=== PATIENT | female | born 1965 | race Caucasian/White ===

== ENCOUNTER → 2017-08-17 15:41 | Outpatient (CLI) | payer OTHER, SELFPAY ==
--- NOTE | 2017-08-17 15:45 | MM_ITS ---
MM Dig screening mamm BI w/CAD CAD Screening ORDERING PHYSICIAN : Ezekiel Cormier MD PATIENT AGE: 51 years GENDER: Female COMPARISON: Previous mammograms: July 2016, June 2015, December 2012 INDICATION: Routine screening. No hormones. No new complaints. Noncontributory family history. TECHNIQUE: Standard CC and MLO images were obtained. Additional axillary cc includedR2 CAD reviewed. FINDINGS: Generalized fatty replacement with lower density breast overall bilaterally. No dominant mass nor suspicious calcifications. No significant change since prior studies. Bilateral follow-up in one year be adequate. CAD computer review highlights no areas of concern either . ... IMPRESSION:... Stable bilateral mammogram. Lower density breast with generalized replacement no significant change. Follow-up in one year BI-RADS Category: 1 Negative RECOMMENDED FOLLOW-UP: 1YR - 1 YEAR FOLLOW-UP (A letter has been sent to the patient regarding results of the study.) A
== END ==
PROVIDERS: Visit Provider Nurse Practitioner Obstetrics & Gynecology
DX: Z12.31 Encounter for screening mammogram for malignant neoplasm of breast (principal)
CPT/HCPCS: 77067

== ENCOUNTER → 2020-07-16 10:11 | Outpatient (CLI) | payer BC, SELFPAY ==
--- NOTE | 2020-07-16 10:12 | MM_ITS ---
PROCEDURE: MM DIG SCREENING MAMM BI W/CAD Digital Breast Tomosynthesis Included CLINICAL INDICATION: screening xmg There is no personal or family history of breast cancer. The patient has had significant weight loss since the previous exam. COMPARISON: MG DMSB DIG MAMM-SCREEN AMY from 07/18/2015 MG DMSB DIG MAMM-SCREEN AMY W/CAD from 08/15/2016 MG SCBI MM Dig screening mamm BI w/CAD from 08/17/2017 TECHNIQUE: Standard CC and MLO images and 3D Tomosynthesis was obtained. R2 CAD reviewed. FINDINGS: Scattered diffuse fibroglandular densities are seen in both breasts. There is a benign-appearing calcification right breast. There are no CAD markings. There is no new or suspicious lesion in either breast and no suspicious microcalcifications. IMPRESSION: Fibrofatty parenchyma with no suspicious lesions seen BI-RAD Category: 2 Benign Finding(s) FOLLOW-UP: 1YR 1 Year Follow-up (A letter has been sent to the patient regarding results of the study.) Dictated by: Dr. Serjio Sagastume MD 07/22/2020 10:26 Dr. Serjio Sagastume MD in [place] 07/22/2020 10:26
== END ==
PROVIDERS: PCP Nurse Practitioner Obstetrics & Gynecology; Visit Provider Nurse Practitioner Obstetrics & Gynecology
DX: Z12.31 Encounter for screening mammogram for malignant neoplasm of breast (principal)
CPT/HCPCS: 77063; 77067

== ENCOUNTER → 2021-08-16 08:14 | Outpatient (CLI) | payer OTHER, SELFPAY ==
--- NOTE | 2021-08-16 08:15 | MM_ITS ---
PROCEDURE INFORMATION: Exam: MG Bilateral Screening 3D Mammography Exam date and time: 08/16/2021 8:16 AM Age: 55 years old Clinical indication: Screening. No family history of breast cancer. TECHNIQUE: Imaging protocol: Bilateral Screening tomosynthesis and 2D mammography including computer-aided detection (CAD) when performed. COMPARISON: 1. MG MM DIG SCREENING MAMM BI W/CAD 07/16/2020 10:17 AM 2. MG SCBI MM Dig screening mamm BI w/CAD 08/17/2017 3:55 PM 3. MG DMSB DIG MAMM-SCREEN AMY W/CAD 08/15/2016 9:05 AM 4. MG DMSB DIG MAMM-SCREEN AMY 07/18/2015 1:50 PM FINDINGS: MAMMOGRAPHY: Breast composition: There are scattered areas of fibroglandular density. Mass: None. Architectural distortion: None. Calcifications: No suspicious calcifications. Asymmetric density: None. Skin thickening: None. Axillary adenopathy: None. IMPRESSION: No mammographic evidence of malignancy. Annual screening is recommended unless otherwise clinically indicated. ASSESSMENT: BI-RADS Category 1: Negative
== END ==
PROVIDERS: Visit Provider Nurse Practitioner Obstetrics & Gynecology
DX: Z12.31 Encounter for screening mammogram for malignant neoplasm of breast (principal)
CPT/HCPCS: 77063; 77067

== ENCOUNTER 2023-12-11 14:47 | Outpatient (CLI) | payer BC, SELFPAY ==
--- NOTE | 2023-12-11 14:48 | MM_ITS ---
PROCEDURE INFORMATION: Exam: MG Bilateral Screening 3D Mammography Exam date and time: 12/11/2023 2:49 PM Age: 58 years old Clinical indication: Screening examination TECHNIQUE: Imaging protocol: Bilateral Screening tomosynthesis and 2D mammography including computer-aided detection (CAD) when performed. COMPARISON: 1. MG MM DIG SCREENING MAMM BI W/CAD 08/16/2021 8:16 AM 2. MG MM DIG SCREENING MAMM BI W/CAD 07/16/2020 10:17 AM FINDINGS: MAMMOGRAPHY: Breast composition: The breasts are almost entirely fatty. Mass: None. Architectural distortion: None. Calcifications: No suspicious calcifications. Asymmetric density: None. Skin thickening: None. Axillary adenopathy: None. IMPRESSION: No mammographic evidence of malignancy. Annual screening is recommended unless otherwise clinically indicated. ASSESSMENT: BI-RADS Category 1: Negative
== END 2023-12-11 23:59 | disposition home or self-care (01) ==
LOC: RAD 14:48
PROVIDERS: PCP Social Worker; Visit Provider Nurse Practitioner Obstetrics & Gynecology
DX: Z12.31 Encounter for screening mammogram for malignant neoplasm of breast (principal)
CPT/HCPCS: 77063; 77067

== ENCOUNTER 2024-01-09 09:44 | Outpatient (CLI) | payer BC, SELFPAY ==
[2024-01-09 10:12] LABS: Basophils % 0.7 % (0.1-2.0); Eosinophils # 0.2 K/mm3 (0.0-0.4); Hematocrit 49.1 % (37.0-47.0); Hemoglobin 15.4 g/dL (12.2-16.2); Lymphocytes # 2.1 K/mm3 (0.7-4.5); Mean Corpuscular HGB Conc 31.5 g/dL (31.8-35.4); Mean Corpuscular Hemoglobin 31.6 pg (27.0-31.2); Mean Corpuscular Volume 100.6 fl (81-99); Mean Platelet Volume 6.9 fl (7.4-10.4); Monocytes # 0.3 K/mm3 (0.1-1.0); Monocytes % 5.8 % (1.7-9.3); Neutrophils # 3.3 K/mm3 (1.8-7.8); Neutrophils % 55.5 % (37.0-80.0); Platelet Count 239 K/mm3 (142-424); Red Blood Count 4.88 M/mm3 (4.20-5.40); Red Cell Distribution Width 13.3 % (11.5-17.5); White Blood Count 5.9 K/mm3 (4.8-10.8)
[2024-01-09 10:37] LABS: Alanine Aminotransferase 24 U/L (12-78); Albumin Level 4.1 g/dl (3.5-5.0); Albumin/Globulin Ratio 1.5 (1.1-1.8); Alkaline Phosphatase 61 U/L (38-126); Aspartate Amino Transferase 24 U/L (14-36); Bilirubin,Total 0.7 mg/dl (0.2-1.3); Blood Urea Nitrogen 10 mg/dl (7-17); Calcium 9.5 mg/dl (8.4-10.2); Carbon Dioxide 28 mmol/L (22.0-30.0); Chloride 111 mmol/L (98-107); Chol/HDL Ratio 5.1 (1-3.5); Cholesterol 251 mg/dl (140-200); Estimated Glomerular Filt Rate 86 ml/min (>60); GFR (African American) 104 ML/MIN (>60); Globulin 2.7 g/dL (1.3-3.2); Glucose 132 mg/dl (74-100); HDL Cholesterol 49 mg/dl (40-60); Sodium 143 mmol/L (136-145); Total Protein,Serum 6.8 g/dl (6.3-8.2); Triglycerides 76 mg/dl (30-150); VLDL Cholesterol 15 mg/dL (0-40)
[2024-01-09 10:48] LABS: Direct LDL Cholesterol 165.28 mg/dL (100-129)
[2024-01-11 16:12] LABS: Hemoglobin A1C 9.9 % (4.0-6.0)
[2024-01-12 08:27] LABS: HSV-1 DNA Negative (Negative); HSV-2 DNA Negative (Negative)
== END 2024-01-09 23:59 | disposition home or self-care (01) ==
LOC: LAB 09:45
PROVIDERS: PCP Social Worker; Visit Provider Nurse Practitioner Obstetrics & Gynecology
DX: Z01.419 Encounter for gynecological examination (general) (routine) without abnormal findings (principal); R73.09 Other abnormal glucose
CPT/HCPCS: 36415; 80053; 80061; 83036; 85025; 87529

== ENCOUNTER 2024-12-27 07:38 | Outpatient (CLI) | payer BC, SELFPAY ==
--- OUTSIDE RECORDS SUMMARY | 2024-12-08 08:00 | XMS_ITS | Encounter Summary ---
Author Organization Healthcare Address [address] [place] [address] Care Team Providers Care Recruiting Consultant Name Role Phone Irvin Duong MD Primary Care Provider Unavail able Reason for Visit * Reason Comments Eye Exam Encounter Details Date Type Department Care Team (Late st Contact Info) Description 12/08/2024 8:00 AM EDT Clinical Support [facility] [address] [place] [address] Radha Carr MD [address] [address] Eye Exam Social History Tobacco [...] reach the clinic on the phone. Call [phone] and ask for the home appliances mechanic insulation nozzleman if it is after hours or a [...] reach the clinic on the phone. Call [phone] and ask for the home appliances mechanic insulation nozzleman if it is after hours or a [...] Description 03/13/2025 8:00 AM EST Office Visit [facility] [address] [place] [address] Marcell Rashid MD [address] [facility] [address] [place] [address] documented as of this encounter [...] documented as of this encounter Care Teams Recruiting Consultant Relationship Specialty Start Date End Date Irvin Duong MD [address] [facility] [address] [place] [address] PCP - General 01/27/22 documented as of this encounter
--- OUTSIDE RECORDS SUMMARY | 2024-12-08 08:50 | XMS_ITS | Encounter Summary ---
Author Organization Healthcare Address [address] [place] [address] Care Team Providers Care Recreation Attendant Name Role Phone Irvin Duong MD Primary Care Provider Unavail able Encounter Details Date Type Department Care Team (Late st Contact Info) Description 12/08/2024 8:50 AM EDT Ancillary Procedure [facility] [address] [place] [address] Social History Tobacco Use Types Packs/Day Years [...] on file documented as of this encounter Plan of Treatment Upcoming Encounters Date Type Department Care Team (Late st Contact Info) Description 03/13/2025 8:00 AM EST Office Visit [facility] [address] [place] [address] Marcell Rashid MD [address] [address] documented as of this encounter Procedures [...] Result documented in this encounter Visit Diagnoses Not on filedocumented in this encounter Additional Health Concerns Assessment Noted Time A fall risk assessment has been complete d for the patient 12/28/2023 8:29 AM EDT A Body Mass Index follow-up plan has been documented for the patient 12/08/2024 9:31 AM EDT documented as of this encounter Care Teams Recreation Attendant Relationship Specialty Start Date End Date Irvin Duong MD [address] [facility] [address] [place] [address] PCP - General 01/27/22 documented as of this encounter
--- OUTSIDE RECORDS SUMMARY | 2024-12-27 07:41 | XMS_ITS | Encounter Summary ---
Author Organization Healthcare Address [address] [place] [address] Care Team Providers Care Agricultural Produce Commission Agent Name Role Phone Irvin Duong MD Primary Care Provider Unavail able Reason for Visit * Reason Onset Date Comments HCN - Patient Message 12/05/2024 Encounter Details Date Type Department Care Team (Late st Contact Info) Description 12/05/2024 Telephone [facility] [address] [place] [address] Marcell Rashid MD [address] [address] HCN - Patient Message Social History Tobacco Use Types Packs/Day Years [...] as of this encounter Miscellaneous Notes * Telephone Encounter - Lesli Davis - 12/05/2024 1:54 PM EDT Status Update Call #1 1st call regarding the status of the initial request. Best contact number: [phone] (home) Optimal time of day to reach caller: ANYTIME Additional comments/information from caller: None Note: Please do not reply to this message. Follow-up communication and further actions as a result of this message need to be communicated with the patient directly, if the patient is not active onMyChart. If the patient is active on MyChart, they will receive notification of the communication/outcome via MyChart. * Telephone Encounter - Brayden Moraes - 12/05/2024 10:33 AM EDT Patient Phone Message Reason for Call: Pt is requesting a call back to discuss the research visit. Best contact number and optimal time of day to reach caller: [phone] Note: Please do not reply to this message. Follow-up communication and further actions as a result of this message need to be communicated with the patient directly, if the patient is not active onMyChart. If the patient is active on MyChart, they will receive notification of the communication/outcome via MyChart. documented in this encounter Plan of Treatment Upcoming Encounters Date Type Department Care Team (Late st Contact Info) Description 03/13/2025 8:00 AM EST Office Visit [facility] [address] [place] [address] Marcell Rashid MD [address] [address] documented as of this encounter Visit Diagnoses Not on filedocumented in this encounter Additional Health Concerns Assessment Noted Time A fall risk assessment has been complete d for the patient 12/28/2023 8:29 AM EDT A Body Mass Index follow-up plan has been documented for the patient 06/01/2024 9:36 AM EST documented as of this encounter Care Teams Agricultural Produce Commission Agent Relationship Specialty Start Date End Date Irvin Duong MD [address] [facility] [address] [place] [address] PCP - General 01/27/22 documented as of this encounter
--- OUTSIDE RECORDS SUMMARY | 2024-12-27 07:41 | XMS_ITS | Continuity of Care Document ---
Author Organization [facility] Address [address] [place] [address] Care Team Providers Care Research Microbiologist Name Role Phone Irvin Duong MD Primary Care Provider Unavail able Encounters Date Type Department Care Team Description 12/08/2024 8:50 AM EDT Ancillary Procedure [facility] [address] [place] [address] 12/08/2024 Travel 12/08/2024 8:00 AM EDT Clinical Support [facility] [address] [place] [address] Radha Carr MD Eye Exam 12/05/2024 Telephone [facility] [address] [place] [address] Marcell Rashid MD HCN - Patient Message 06/30/2024 Travel 06/30/2024 8:30 AM EDT Clinical Support [facility] [address] [place] [address] Radha Carr MD Research 06/01/2024 Travel 06/01/2024 7:20 AM EST Ancillary Procedure [facility] [address] [place] [address] 06/01/2024 9:00 AM EST Office Visit [facility] [address] [place] [address] Marcell Rashid MD 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 2 diabetes mellitus (CMS/HCC) (Primary Dx) 05/25/2024 Travel 05/17/2024 Telephone [facility] [address] [place] [address] Marcell Rashid MD HCN - Patient Message 03/14/2024 Telephone [facility] [address], [address] [place] [address] Rosa Stokes APRN 03/13/2024 2:21 PM EST - 03/13/2024 11:59 PM EST Hospital Encounter [facility] X-Ray [address], [address] [place] [address] Rib pain on left side Discharge Disposition: Home or Self Care 03/13/2024 Travel 03/13/2024 2:20 PM EST Office Visit [facility] [address], [address] [place] [address] Rosa Stokse, BIANCA Rash and nonspecific skin eruption (Primary Dx); Rib pain on left side 12/28/2023 8:30 AM EDT Ancillary Procedure [facility] [address] [place] [address] 12/28/2023 Travel 12/28/2023 8:30 AM EDT Office Visit [facility] [address] [place] [address] Marcell Rashid MD 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 2 diabetes mellitus (CMS/HCC) (Primary Dx) 09/07/2023 Travel 09/07/2023 7:20 AM EDT Ancillary Procedure [facility] [address] [place] [address] 09/07/2023 8:30 AM EDT Office Visit [facility] [address] [place] [address] Marcell Rashid MD 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 2 diabetes mellitus (CMS/HCC) (Primary Dx) 06/08/2023 Travel 06/08/2023 7:10 AM EST Ancillary Procedure [facility] [address] [place] [address] 06/08/2023 8:30 AM EST Office Visit [facility] [address] [place] [address] Marcell Rashid MD 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 2 diabetes mellitus (CMS/HCC) (Primary Dx) 03/02/2023 Travel 03/02/2023 7:20 AM EST Ancillary Procedure [facility] [address] [place] [address] 03/02/2023 8:30 AM EST Office Visit [facility] [address] [place] [address] Marcell Rashid MD 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 2 diabetes mellitus (CMS/HCC) (Primary Dx) 12/29/2022 Travel 12/29/2022 7:30 AM EDT Ancillary Procedure [facility] [address] [place] [address] 12/29/2022 9:30 AM EDT Procedure Visit [facility] [address] [place] [address] Marcell Rashid MD 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 2 diabetes mellitus (CMS/HCC) (Primary Dx) 11/17/2022 Travel 11/17/2022 7:40 AM EDT Ancillary Procedure [facility] [address] [place] [address] 11/17/2022 9:00 AM EDT Procedure Visit [facility] [address] [place] [address] Marcell Rashid MD 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 2 diabetes mellitus (CMS/HCC) (Primary Dx) 09/30/2022 Telephone [facility] [address] [place] [address] Frances Espinoza, OD 09/29/2022 Travel 09/29/2022 7:20 AM EDT Ancillary Procedure [facility] [address] [place] [address] 09/29/2022 9:00 AM EDT Procedure Visit [facility] [address] [place] [address] Marcell Rashid MD 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 2 diabetes mellitus (CMS/HCC) (Primary Dx) 09/04/2022 Telephone [facility] [address] [place] [address] Marcell Rashid MD HCN Clinical Concern/Question 08/11/2022 Travel 08/11/2022 7:30 AM EDT Ancillary Procedure [facility] [address] [place] [address] 08/11/2022 9:00 AM EDT Procedure Visit [facility] [address] [place] [address] Marcell Rashid MD 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 2 diabetes mellitus (CMS/HCC) (Primary Dx) 06/16/2022 Telephone [facility] [address] [place] [address] Marcell Rashid MD HCN Clinical Concern/Question 06/16/2022 Travel 06/16/2022 5:15 AM EST Ancillary Procedure [facility] [address] [place] [address] 06/16/2022 9:00 AM EST Office Visit [facility] [address] [place] [address] Marcell Rashid MD 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 2 diabetes mellitus (CMS/HCC) (Primary Dx) 05/14/2022 Telephone [facility] [address] [place] [address] Benito Fitzgerald MD 05/14/2022 Travel 05/14/2022 7:45 AM EST Ancillary Procedure [facility] [address] [place] [address] 05/14/2022 9:15 AM EST Office Visit [facility] [address] [place] [address] Marcell Rashid MD 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 2 diabetes mellitus (CMS/HCC) (Primary Dx) 03/10/2022 Travel 03/10/2022 7:55 AM EST Ancillary Procedure [facility] [address] [place] [address] 03/10/2022 9:00 AM EST Procedure Visit [facility] [address] [place] [address] Marcell Rashid MD 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 2 diabetes mellitus (CMS/HCC) (Primary Dx) 01/27/2022 Travel 01/27/2022 7:20 AM EDT Ancillary Procedure [facility] [address] [place] [address] 01/27/2022 8:30 AM EDT Office Visit [facility] [address] [place] [address] Marcell Rashid MD 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 Active meclizine (Antivert) 25 MG tablet 10/29/2024 Active Active Problems Problem Noted Date Diagnosed Date Moderate nonproliferative di abetic retinopathy of both eyes with macular edema associated with type 2 diabetes mellitus 03/10/2022 Family History Medical History Relation Name Comments Cancer Brother Hypertension Father Stroke Father Cataracts Mother Diabetes Mother Cancer Sister Relation Name Status Comments Brother Father Mother Sister Social History Smoking Status as of 12/27/2024 Tobacco Use Types Packs/Day Years Used Date Smoking Tobacco: Never Assessed Sex and Gender Information Value Date Recorded Sex Assigned at Not on file Legal Sex Female 8:43 PM EDT Gender Identity Not on file Sexual Orientation Not on file Last Filed Vital Signs Vital Sign Reading Time Taken Comments Blood Pressure 109/71 03/13/2024 1:31 PM EST Pulse 75 03/13/2024 1:31 PM EST Temperature 36.8 C (98.3 F) 03/13/2024 1:31 PM EST Respiratory Rate - - Oxygen Saturation 94% 03/13/2024 1:31 PM EST Inhaled Oxygen Concentration - - Weight 81 kg (178 lb 9.2 oz) 03/13/2024 1:31 PM EST Height 165.1 cm (5' 5 ) 03/13/2024 1:31 PM EST Body Mass Index 29.72 03/13/2024 1:31 PM EST Plan of Treatment Upcoming Encounters Date Type Department Care Team (Late st Contact Info) Description 03/13/2025 8:00 AM EST Office Visit [facility] [address] [place] [address] Marcell Rashid MD [address] [phone] Procedures Procedure Name Priority Date/Time Associated Diagnosis Comments OCT, RETINA - OU - BOTH EYES Routine 12/08/2024 9:10 AM EDT EXTRA TUBE LIGHT GREEN TOP Routine 06/30/2024 8:53 AM EDT 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 2 diabetes mellitus (CMS/HCC) EXTRA TUBES Routine 06/30/2024 8:53 AM EDT 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 2 diabetes mellitus (CMS/HCC) LIPID PROFILE, PLASMA Routine 06/30/2024 8:53 AM EDT 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 2 diabetes mellitus (CMS/HCC) URINALYSIS WITH REFLEX MICROSCOPIC Routine 06/30/2024 8:53 AM EDT 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 2 diabetes mellitus (CMS/HCC) CBC WITH AUTO DIFFERENTIAL Routine 06/30/2024 8:53 AM EDT 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 2 diabetes mellitus (CMS/HCC) COMPREHENSIVE METABOLIC PANEL, PLASMA Routine 06/30/2024 8:53 AM EDT 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 2 diabetes mellitus (CMS/HCC) OCT, RETINA - OU - BOTH EYES Routine 06/01/2024 9:21 AM EST 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 2 diabetes mellitus (CMS/HCC) XR RIBS 3 VIEWS LEFT W CHEST POSTERIORANTERIOR Routine 03/13/2024 2:46 PM EST Rib pain on left side VARICELLA-ZOSTER VIRUS ANTIBODY, IGM (SO) Routine 03/13/2024 2:28 PM EST Rash and nonspecific skin eruption OCT, RETINA - OU - BOTH EYES Routine 12/28/2023 9:11 AM EDT 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 2 diabetes mellitus (CMS/HCC) OCT, RETINA - OU - BOTH EYES Routine 09/07/2023 9:02 AM EDT 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 2 diabetes mellitus (CMS/HCC) OCT, RETINA - OU - BOTH EYES Routine 06/08/2023 8:56 AM EST 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 2 diabetes mellitus (CMS/HCC) OCT, RETINA - OU - BOTH EYES Routine 03/02/2023 8:57 AM EST 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 2 diabetes mellitus (CMS/HCC) OCT, RETINA - OU - BOTH EYES Routine 12/29/2022 10:42 AM EDT 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 2 diabetes mellitus (CMS/HCC) OCT, RETINA - OU - BOTH EYES Routine 11/17/2022 9:33 AM EDT 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 2 diabetes mellitus (CMS/HCC) INTRAVITREAL INJECTION, PHARMACOLOGIC AGENT - OS - LEFT EYE Routine 09/29/2022 10:01 AM EDT 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 2 diabetes mellitus (CMS/HCC) OCT, RETINA - OU - BOTH EYES Routine 09/29/2022 10:00 AM EDT 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 2 diabetes mellitus (CMS/HCC) OCT, RETINA - OU - BOTH EYES Routine 08/11/2022 10:59 AM EDT 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 2 diabetes mellitus (CMS/HCC) INTRAVITREAL INJECTION, PHARMACOLOGIC AGENT - OS - LEFT EYE Routine 08/11/2022 10:59 AM EDT 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 2 diabetes mellitus (CMS/HCC) INTRAVITREAL INJECTION, PHARMACOLOGIC AGENT - OS - LEFT EYE Routine 06/16/2022 9:16 AM EST 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 2 diabetes mellitus (CMS/HCC) OCT, RETINA - OU - BOTH EYES Routine 06/16/2022 9:15 AM EST 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 2 diabetes mellitus (CMS/HCC) INTRAVITREAL INJECTION, PHARMACOLOGIC AGENT - OS - LEFT EYE Routine 05/14/2022 10:49 AM EST 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 2 diabetes mellitus (CMS/HCC) OCT, RETINA - OU - BOTH EYES Routine 05/14/2022 10:49 AM EST 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 2 diabetes mellitus (CMS/HCC) OCT, RETINA - OU - BOTH EYES Routine 03/10/2022 10:29 AM EST 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 2 diabetes mellitus (CMS/HCC) DESTROY CHOROID LESION, PHOTOCOAG - OS - LEFT EYE Routine 01/27/2022 12:28 PM EDT 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 Blood Venous blood specimen / Unknown Venipuncture / Unknown 06/30/2024 8:53 AM EDT 06/30/2024 10:01 AM EDT us Radha Carr MD LAB BLOOD ORDERABLES F inal Result [facility] [address] [place] [address] * (ABNORMAL) Urinalysis with reflex microscopic (Culture NOT Included) (06/30/2024 8:53 AM EDT) Color, Urine Yellow LAB URINALYSIS - AUTOMATED METHOD 06/30/2024 10:00 AM EDT [facility] Clarity, Urine Clear LAB URINALYSIS - AUTOMATED METHOD 06/30/2024 10:00 AM EDT [facility] Spec [place], Urine >1.030(H) 1.005 - 1.030 LAB URINALYSIS - AUTOMATED METHOD 06/30/2024 10:00 AM EDT [facility] pH, Urine 5.5 5.0 - 8.0 LAB URINALYSIS - AUTOMATED METHOD 06/30/2024 10:00 AM EDT [facility] Protein, Urine Negative Negative mg/dL LAB URINALYSIS - AUTOMATED METHOD 06/30/2024 10:00 AM EDT [facility] Glucose, Urine 100(A) Negative mg/dL LAB URINALYSIS - AUTOMATED METHOD 06/30/2024 10:00 AM EDT [facility] Ketones, Urine Negative Negative mg/dL LAB URINALYSIS - AUTOMATED METHOD 06/30/2024 10:00 AM EDT [facility] Blood, Urine Negative Negative LAB URINALYSIS - AUTOMATED METHOD 06/30/2024 10:00 AM EDT [facility] Bilirubin, Urine Negative Negative LAB URINALYSIS - AUTOMATED METHOD 06/30/2024 10:00 AM EDT [facility] Urobilinogen, Urine 0.2 0.2 to 1.0 mg/dL LAB URINALYSIS - AUTOMATED METHOD 06/30/2024 10:00 AM EDT [facility] Leukocytes, Urine Negative Negative LAB URINALYSIS - AUTOMATED METHOD 06/30/2024 10:00 AM EDT [facility] Nitrite, Urine Negative Negative LAB URINALYSIS - AUTOMATED METHOD 06/30/2024 10:00 AM EDT [facility] Urine Urine specimen obtained by clean catch procedure / Unknown Non-blood Collection / Unknown 06/30/2024 8:53 AM EDT 06/30/2024 9:44 AM EDT us Radha Carr MD LAB URINE ORDERABLES F inal Result [facility] [address] [place] [address] * CBC w/ Diff (06/30/2024 8:53 AM EDT) WBC Count 7.16 3.70 - 10.30 10*3/uL LAB HEMATOLOGY METHOD 06/30/2024 9:56 AM EDT [facility] RBC Count 4.40 3.90 - 5.20 10*6/uL LAB HEMATOLOGY METHOD 06/30/2024 9:56 AM EDT [facility] HGB 13.2 11.2 - 15.7 g/dL LAB HEMATOLOGY METHOD 06/30/2024 9:56 AM EDT [facility] HCT 40.0 34.0 - 45.0 % LAB HEMATOLOGY METHOD 06/30/2024 9:56 AM EDT [facility] Platelet Count 197 155 - 369 10*3/uL LAB HEMATOLOGY METHOD 06/30/2024 9:56 AM EDT [facility] MCV 91 79 - 98 fL LAB HEMATOLOGY METHOD 06/30/2024 9:56 AM EDT [facility] MCH 30.0 26.0 - 32.0 pg LAB HEMATOLOGY METHOD 06/30/2024 9:56 AM EDT [facility] MCHC 33.0 30.7 - 35.5 g/dL LAB HEMATOLOGY METHOD 06/30/2024 9:56 AM EDT [facility] RDW 12.2 11.5 - 14.5 % LAB HEMATOLOGY METHOD 06/30/2024 9:56 AM EDT [facility] MPV 9.7 8.8 - 12.5 fL LAB HEMATOLOGY METHOD 06/30/2024 9:56 AM EDT [facility] nRBC 0.0 <=0.0 per 100 WBCs LAB HEMATOLOGY METHOD 06/30/2024 9:56 AM EDT [facility] Differential Type Automated LAB HEMATOLOGY METHOD 06/30/2024 9:56 AM EDT [facility] Neutrophils % 51 % LAB HEMATOLOGY METHOD 06/30/2024 9:56 AM EDT [facility] Lymphocytes % 36 % LAB HEMATOLOGY METHOD 06/30/2024 9:56 AM EDT [facility] Monocytes % 7 % LAB HEMATOLOGY METHOD 06/30/2024 9:56 AM EDT [facility] Eosinophils % 4 % LAB HEMATOLOGY METHOD 06/30/2024 9:56 AM EDT [facility] Basophils % 1 % LAB HEMATOLOGY METHOD 06/30/2024 9:56 AM EDT [facility] Immature Granulocytes % 1 % LAB HEMATOLOGY METHOD 06/30/2024 9:56 AM EDT [facility] Neutrophils Absolute 3.71 1.60 - 6.10 10*3/uL LAB HEMATOLOGY METHOD 06/30/2024 9:56 AM EDT [facility] Lymphocytes Absolute 2.59 1.20 - 3.90 10*3/uL LAB HEMATOLOGY METHOD 06/30/2024 9:56 AM EDT [facility] Monocytes Absolute 0.53 0.30 - 0.90 10*3/uL LAB HEMATOLOGY METHOD 06/30/2024 9:56 AM EDT [facility] Eosinophils Absolute 0.25 0.00 - 0.50 10*3/uL LAB HEMATOLOGY METHOD 06/30/2024 9:56 AM EDT [facility] Basophils Absolute 0.04 0.00 - 0.10 10*3/uL LAB HEMATOLOGY METHOD 06/30/2024 9:56 AM EDT [facility] Immature Granulocytes Absolute 0.04 0.00 - 0.06 10*3/uL LAB HEMATOLOGY METHOD 06/30/2024 9:56 AM EDT [facility] Blood Venous blood specimen / Unknown Venipuncture / Unknown 06/30/2024 8:53 AM EDT 06/30/2024 9:49 AM EDT [facility] - 06/30/2024 9:56 AM EDT Therapeutic decision making should be based on absolute values, rather than percentages. us Radha Carr MD LAB BLOOD ORDERABLES F inal Result [facility] [address] [place] [address] * (ABNORMAL) Lipid panel (06/30/2024 8:53 AM EDT) Cholesterol, Plasma 249(H) <200 mg/dL 06/30/2024 10:27 AM EDT [facility] Comment: Cholesterol Reference Range (age >17 years): Desirable <200 mg/dL Borderline 200 to 239 mg/dL Undesirable >239 mg/dL HDL 46(L) >=50 mg/dL 06/30/2024 10:27 AM EDT [facility] Comment: HDL Cholesterol Reference Ranges (age >17 years): Female, acceptable > or = 50 mg/dL Male, acceptable > or = 40 mg/dL Triglycerides, Plasma 148 <150 mg/dL 06/30/2024 10:27 AM EDT [facility] Comment: Triglyceride Reference Range (age >17 years): Desirable: <150 mg/dL Borderline high: 150 to 199 mg/dL High: 200 to 499 mg/dL Very high: >499 mg/dL Increased risk of pancreatitis: >1000 mg/dL Cholesterol/HDL Ratio 5 06/30/2024 10:27 AM EDT [facility] LDL, Calculated 176(H) <100 mg/dL 10:27 AM EDT [facility] Comment: LDL Cholesterol Reference Range (age >17 years): Optimal: <100 mg/dL Near or above optimal: 100 - 129 mg/dL Borderline high: 130 - 159 mg/dL High: 160 - 189 mg/dL Very high: >189 mg/dL LDL Cholesterol Reference Range (age <18 years): Desirable: <110 mg/dL Borderline: 110 - 129 mg/dL Undesirable: >130 mg/dL LDL Cholesterol is calculated using the Nazario/NIH equation. Fasting greater than or equal to 12 hours? No 06/30/2024 10:27 AM EDT [facility] Blood Venous blood specimen / Unknown Venipuncture / Unknown 06/30/2024 8:53 AM EDT 06/30/2024 9:54 AM EDT us Radha Carr MD LAB BLOOD ORDERABLES F inal Result [facility] [address] [place] [address] * (ABNORMAL) Comprehensive metabolic panel (06/30/2024 8:53 AM EDT) Glucose, Plasma 346(H) 74 - 99 mg/dL 06/30/2024 10:27 AM EDT [facility] BUN, Plasma 16 7 - 21 mg/dL 06/30/2024 10:27 AM EDT [facility] Creatinine, Plasma 0.68 0.60 - 1.10 mg/dL 06/30/2024 10:27 AM EDT [facility] BUN/Creatinine Ratio 24 06/30/2024 10:27 AM EDT [facility] Sodium, Plasma 137 136 - 145 mmol/L 06/30/2024 10:27 AM EDT [facility] Potassium, Plasma 4.0 3.6 - 4.9 mmol/L 06/30/2024 10:27 AM EDT [facility] Chloride, Plasma 101 97 - 107 mmol/L 06/30/2024 10:27 AM EDT [facility] CO2, Plasma 24 22 - 29 mmol/L 06/30/2024 10:27 AM EDT [facility] Anion Gap 12 6 - 16 mmol/L 06/30/2024 10:27 AM EDT [facility] Total Calcium, Plasma 9.0 8.9 - 10.2 mg/dL 06/30/2024 10:27 AM EDT [facility] Total Protein 7.0 6.3 - 7.9 g/dL 06/30/2024 10:27 AM EDT [facility] Albumin, Plasma 4.1 3.5 - 5.2 g/dL 06/30/2024 10:27 AM EDT [facility] AST, Plasma 16 10 - 35 U/L 06/30/2024 10:27 AM EDT [facility] ALT, Plasma 28 10 - 35 U/L 06/30/2024 10:27 AM EDT [facility] Alkaline Phosphatase, Plasma 107 46 - 142 U/L 06/30/2024 10:27 AM EDT [facility] Total Bilirubin, Plasma 0.3 0.2 - 1.1 mg/dL 06/30/2024 10:27 AM EDT [facility] eGFRcr 101.7 mL/min/1.7 3m*2 06/30/2024 10:27 AM EDT [facility] Comment:Reported eGFRcr in m L/min/1.73m2 is based the CKD-EPI 2020 equation that does not use a race coefficient. Blood Venous blood specimen / Unknown Venipuncture / Unknown 06/30/2024 8:53 AM EDT 06/30/2024 9:54 AM EDT us Radha Carr MD LAB BLOOD ORDERABLES F inal Result [facility] [address] [place] [address] * OCT, Retina - OU - Both Eyes (06/01/2024 9:21 AM EST) Anatomical Region Laterality Modality Head Optical Coherenc e Tomography Narrative 06/01/2024 9:21 AM EST Right Eye Quality was good. Scan locations included subfoveal. Progression has been stable. Left Eye Quality was good. Scan locations included subfoveal. Progression has been stable. us Marcell Rashid MD OPHTH TOMOGRAPHY Final Result * XR Ribs 3 Views Left w Chest Posterioranterior (03/13/2024 2:46 PM EST) Anatomical Region Laterality Modality Body Left Digital Radiogra phy Impressions 03/13/2024 3:01 PM EST No visibly displaced rib fractures. CRITICAL RESULT: No. COMMUNICATION: Per this written report. Drafted by Gerber Flores on 03/13/2024 2:59 PM Final report signed by Gerber Flores on 03/13/2024 3:01 PM Narrative 03/13/2024 3:01 PM EST CLINICAL INDICATION: left sided rib pain TECHNIQUE: XR RIBS 3 VIEWS LEFT W CHEST POSTERIORANTERIOR COMPARISON: None. FINDINGS: No focal airspace opacity. No pneumothorax or pleural effusion. The cardiomediastinal silhouette is within normal limits. No visibly displaced rib fractures. Procedure Note Gerber Flores MD - 03/13/2024 CLINICAL INDICATION: left sided rib pain TECHNIQUE: XR RIBS 3 VIEWS LEFT W CHEST POSTERIORANTERIOR COMPARISON: None. FINDINGS: No focal airspace opacity. No pneumothorax or pleural effusion. Thecardiomediastinal silhouette is within normal limits. No visibly displacedrib fractures. IMPRESSION: No visibly displaced rib fractures. CRITICAL RESULT: No. COMMUNICATION: Per this written report. Drafted by Gerber Flores on 03/13/2024 2:59 PM Final report signed by Gerber Flores on 03/13/2024 3:01 PM Rosa Stokes DESIGNER ARCHITECT IMG XR PROCEDURES Final Res ult * Varicella zoster antibody, IgM (03/13/2024 2:28 PM EST) Varicella-Zost er Virus Antibody, IgM 0.02 <=0.90 ISR 03/15/2024 11:32 PM EST [place] [facility]) Blood Venous blood specimen / Unknown Venipuncture / Unknown 03/13/2024 2:28 PM EST 03/13/2024 9:27 PM EST Narrative [facility] [place] [facility]) - 03/15/2024 11:32 PM EST INTERPRETIVE INFORMATION: Varicella-Zoster Virus Antibody, IgM 0.90 ISR or less ........ Negative - No significant level of detectable varicella-zoster virus IgM antibody. 0.91-1.09 ISR ........... Equivocal - Repeat testing in 10-14 days may be helpful. 1.10 ISR or greater ..... Positive - Significant level of detectable varicella-zoster virus IgM antibody. Indicative of current or recent infection. However, low levels of IgM antibodies may occasionally persist for more than 12 months post-infection or immunization. Performed By: [facility] [place] [address] Coffee Maker Servicer: Mahin Bennett MD, PhD CLIA Number: [id number] Rosa Aggie Kike [facility] LAB BLOOD ORDERABLES Final Result [facility] ([facility] [address] [place] [address] * OCT, Retina - OU - Both Eyes (12/28/2023 9:11 AM EDT) Anatomical Region Laterality Modality Head Optical Coherenc e Tomography Narrative 12/28/2023 9:11 AM EDT Right Eye Quality was good. Scan locations included subfoveal. Progression has been stable. Left Eye Quality was good. Scan locations included subfoveal. Progression has been stable. Marcell Rashid MD OPHTH TOMOGRAPHY Final Result * OCT, Retina - OU - Both Eyes (09/07/2023 9:02 AM EDT) Anatomical Region Laterality Modality Head Optical Coherenc e Tomography Narrative 09/07/2023 9:02 AM EDT Right Eye Quality was good. Scan locations included subfoveal. Progression has been stable. Left Eye Quality was good. Scan locations included subfoveal. Progression has been stable. Marcell Rashid MD OPHTH TOMOGRAPHY Final Result * OCT, Retina - OU - Both Eyes (06/08/2023 8:56 AM EST) Anatomical Region Laterality Modality Head Optical Coherenc e Tomography Narrative 06/08/2023 8:56 AM EST OD: trace non center involving IRF OS: ERM, trace non center involving IRF Marcell Rashid MD OPHTH TOMOGRAPHY Final Result * OCT, Retina - OU - Both Eyes (03/02/2023 8:57 AM EST) Anatomical Region Laterality Modality Head Optical Coherenc e Tomography Narrative 03/02/2023 8:57 AM EST Right Eye Quality was good. Scan locations included subfoveal. Progression has been stable. Left Eye Quality was good. Scan locations included subfoveal. Notes OD: no fluid OS edema unchanged. Retinal thickness stable, ERM Result [facility] us Marcell Rashid MD OPHTH TOMOGRAPHY Final Result * OCT, Retina - OU - Both Eyes (12/29/2022 10:42 AM EDT) Anatomical Region Laterality Modality Head Optical Coherenc e Tomography Narrative 12/29/2022 10:42 AM EDT Right Eye Quality was good. Scan locations included subfoveal. Progression has been stable. Left Eye Quality was good. Scan locations included subfoveal. Notes OD: no fluid OS edema unchanged. Retinal thickness stable/slightly improved. Result Jasen Rashid MD OPHTH TOMOGRAPHY Final Result * OCT, Retina - OU - Both Eyes (11/17/2022 9:33 AM EDT) Anatomical Region Laterality Modality Head Optical Coherenc e Tomography Narrative 11/17/2022 9:33 AM EDT Right Eye Quality was good. Scan locations included subfoveal. Progression has been stable. Left Eye Quality was good. Scan locations included subfoveal. Progression has been stable. Result Jasen Rashid MD OPHTH TOMOGRAPHY Final Result * Intravitreal Injection, Pharmacologic Agent - OS - Left Eye (09/29/2022 10:01 AM EDT) Anatomical Region Laterality Modality Head Other Narrative 09/29/2022 10:01 AM EDT Time Out 09/29/2022. 10:01 AM. Confirmed correct patient, procedure, site, and patient consented. Anesthesia Topical anesthesia was used. Anesthetic medications included Proparacaine 0.5%. Procedure Preparation included 5% betadine to ocular surface. A 30 gauge needle was used. Injection: 2 mg Aflibercept 2 MG/0.05ML Route: Intravitreal, Site: Left Eye [facility]: 38882-599-21, Lot: [id number], Expiration date: 07/20/2023 Post-op Post injection exam found visual acuity of at least counting fingers. The patient tolerated the procedure well. There were no complications. The patient received written and verbal post procedure care education. Post injection medications were not given. Result Jasen Rashid MD [facility] PROCEDURES Final Result * OCT, Retina - OU - Both Eyes (09/29/2022 10:00 AM EDT) Anatomical Region Laterality Modality Head Optical Coherenc e Tomography Narrative 09/29/2022 10:00 AM EDT Right Eye Quality was good. Progression has been stable. Left Eye Quality was good. Progression has been stable. Notes OD: normal foveal contour, non central exudate OS: stable IRF/exudate Result [facility] Marcell Rashid MD [facility] TOMOGRAPHY Final Result * OCT, Retina - OU - Both Eyes (08/11/2022 10:59 AM EDT) Anatomical Region Laterality Modality Head Optical Coherenc e Tomography Narrative 08/11/2022 10:59 AM EDT Right Eye Quality was good. Progression has been stable. Left Eye Quality was good. Progression has worsened. Notes OD: normal foveal contour, non central exudate OS: mildly worsened IRF/exudate Result [facility] Marcell Rashid MD [facility] TOMOGRAPHY Final Result * Intravitreal Injection, Pharmacologic Agent - OS - Left Eye (08/11/2022 10:59 AM EDT) Anatomical Region Laterality Modality Head Other Narrative 08/11/2022 10:59 AM EDT Time Out 08/11/2022. 10:59 AM. Confirmed correct patient, procedure, site, and patient consented. Anesthesia Topical anesthesia was used. Anesthetic medications included Proparacaine 0.5%. Procedure Preparation included 5% betadine to ocular surface. A 30 gauge needle was used. Injection: 2 mg Aflibercept 2 MG/0.05ML Route: Intravitreal, Site: Left Eye [facility]: 95394-063-31, Lot: [id number], Expiration date: 07/20/2023 Post-op Post injection exam found visual acuity of at least counting fingers. The patient tolerated the procedure well. There were no complications. The patient received written and verbal post procedure care education. Post injection medications were not given. Result [facility] Marcell Rashid MD [facility] PROCEDURES Final Result * Intravitreal Injection, Pharmacologic Agent - OS - Left Eye (06/16/2022 9:16 AM EST) Anatomical Region Laterality Modality Head Other Narrative 06/16/2022 9:16 AM EST Time Out 06/16/2022. 9:16 AM. Confirmed correct patient, procedure, site, and patient consented. Anesthesia Topical anesthesia was used. Anesthetic medications included Proparacaine 0.5%. Procedure Preparation included 5% betadine to ocular surface. A 30 gauge needle was used. Injection: 1.25 mg bevacizumab 1.25 MG/0.05ML Route: Intravitreal, Site: Left Eye ND: [id number], Lot: [id number], Expiration date: 07/24/2022, Waste: 3.95 mL Post-op Post injection exam found visual acuity of at least counting fingers. The patient tolerated the procedure well. There were no complications. The patient received written and verbal post procedure care education. Post injection medications were not given. us Marcell Rashid MD [facility] PROCEDURES Final Result * OCT, Retina - OU - Both Eyes (06/16/2022 9:15 AM EST) Anatomical Region Laterality Modality Head Optical Coherenc e Tomography Narrative 06/16/2022 9:15 AM EST Right Eye Quality was good. Progression has been stable. Left Eye Quality was good. Progression has improved. Notes OD: normal foveal contour. Non central exudate. OS: improved IRF/exudate. us Marcell Rashid MD OPHTH TOMOGRAPHY Final Result * Intravitreal Injection, Pharmacologic Agent - OS - Left Eye (05/14/2022 10:49 AM EST) Anatomical Region Laterality Modality Head Other Narrative 05/14/2022 10:49 AM EST Time Out 05/14/2022. 10:45 AM. Confirmed correct patient, procedure, site, and patient consented. Anesthesia Topical anesthesia was used. Anesthetic medications included Proparacaine 0.5%. Procedure Preparation included 5% betadine to ocular surface. A 30 gauge needle was used. Injection: 1.25 mg bevacizumab 1.25 MG/0.05ML Route: Intravitreal, Site: Left Eye ND: [id number], Lot: [id number], Expiration date: 06/26/2022, Waste: 3.95 mL Post-op Post injection exam found visual acuity of at least counting fingers. The patient tolerated the procedure well. There were no complications. Kaia Shine MD [facility] PROCEDURES Final Re sult * OCT, Retina - OU - Both Eyes (05/14/2022 10:49 AM EST) Anatomical Region Laterality Modality Head Optical Coherenc e Tomography Narrative 05/14/2022 10:49 AM EST Right Eye Quality was good. Progression has been stable. Left Eye Quality was good. Progression has worsened. Notes OD: normal foveal contour. Non central exudate. OS: worsening IRF/exudate. Marcell Rashid MD OPHTH TOMOGRAPHY Final Result * OCT, Retina - OU - Both Eyes (03/10/2022 10:29 AM EST) Anatomical Region Laterality Modality Head Optical Coherenc e Tomography Narrative 03/10/2022 10:29 AM EST Right Eye Quality was good. Scan locations included subfoveal. Progression has been stable. Left Eye Quality was good. Scan locations included subfoveal. Progression has improved. 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 Anesthesia Topical anesthesia was used. Anesthetic medications included Lidocaine 2%. Laser Information The type of laser was argon. Color was green. The duration in seconds was 0.05. The spot size was 200 microns. Laser power was -50. Total spots was 40. Post-op The patient tolerated the procedure well. There were no complications. The patient received written and verbal post procedure care education. Notes Grid laser to area of edema temp to fovea. Good cooperation, no complication. WIll re check in 1m us Marcell Rashid MD [facility] CLINIC PROCEDURES Final Result * OCT, Retina - OU - Both Eyes (01/27/2022 12:27 PM EDT) Anatomical Region Laterality Modality Head Optical Coherenc e Tomography Narrative 01/27/2022 12:27 PM EDT Right Eye Quality was good. Scan locations included subfoveal. Left Eye Quality was good. Scan locations included subfoveal. 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 2 diabetes mellitus 05/14/2022 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 2 diabetes mellitus 06/16/2022 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 2 diabetes mellitus 08/11/2022 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 2 diabetes mellitus 09/29/2022 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 2 diabetes mellitus 11/17/2022 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 2 diabetes mellitus 12/29/2022 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 2 diabetes mellitus 03/02/2023 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 2 diabetes mellitus 06/08/2023 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 2 diabetes mellitus 09/07/2023 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 2 diabetes mellitus 12/28/2023 Rib pain on left side 03/13/2024 Rib pain on left side 03/13/2024 Rash and nonspecific skin eruption Rash and other nonspecific skin eruption 03/13/2024 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 2 diabetes mellitus 06/01/2024 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 [address] [place] [address] PCP - General 01/27/22
--- OUTSIDE RECORDS SUMMARY | 2024-12-27 07:41 | XMS_ITS | Encounter Summary ---
Author Organization Healthcare Address [address] [place] [address] Care Team Providers Care Salesperson Household Appliances Name Role Phone Irvin Duong MD Primary Care Provider Unavail able Encounter Details Date Type Department Care Team (Latest Contact Info) Description 12/08/2024 Travel Social History Tobacco Use Types Packs/Day Years [...] Description 03/13/2025 8:00 AM EST Office Visit [facility] [address] [place] [address] Marcell Rashid MD [address] [place] [address] documented as of this encounter Visit Diagnoses Not on filedocumented in this encounter Additional Health Concerns Assessment Noted Time A fall risk assessment has been complete d for the patient 12/28/2023 8:29 AM EDT A Body Mass Index follow-up plan has been documented for the patient 12/08/2024 9:31 AM EDT documented as of this encounter Care Teams Salesperson Household Appliances Relationship Specialty Start Date End Date Irvin Duong MD [address] [facility] [address] [place] [address] PCP - General 01/27/22 documented as of this encounter
--- NOTE | 2024-12-27 08:00 | MM_ITS ---
PROCEDURE INFORMATION: Exam: MG Bilateral Screening 3D Mammography Exam date and time: 12/27/2024 8:08 AM Age: 59 years old Clinical indication: Screening mammogram TECHNIQUE: Imaging protocol: Bilateral Screening tomosynthesis and 2D mammography including computer-aided detection (CAD) when performed. COMPARISON: 1. MG MM DIG SCREENING MAMM BI W/CAD 12/11/2023 2:49 PM 2. MG MM DIG SCREENING MAMM BI W/CAD 08/16/2021 8:16 AM 3. MG MM DIG SCREENING MAMM BI W/CAD 07/16/2020 10:17 AM 4. MG SCBI MM Dig screening mamm BI w/CAD 08/17/2017 3:55 PM FINDINGS: MAMMOGRAPHY: Breast composition: There are scattered areas of fibroglandular density. Mass: None. Architectural distortion: No new or suspicious architectural distortion. Calcifications: No new or suspicious calcifications are present Asymmetric density: No new or suspicious asymmetric density is present Skin thickening: None. Axillary adenopathy: None. IMPRESSION: No mammographic evidence of malignancy. Recommend annual screening mammography unless otherwise clinically indicated. ASSESSMENT: BI-RADS category 1: Negative.
== END 2024-12-27 23:59 | disposition home or self-care (01) ==
LOC: RAD 07:39
PROVIDERS: PCP Social Worker; Visit Provider Nurse Practitioner Obstetrics & Gynecology
DX: Z12.31 Encounter for screening mammogram for malignant neoplasm of breast (principal); R92.323 Mammographic fibroglandular density, bilateral breasts
CPT/HCPCS: 77063; 77067

== ENCOUNTER 2025-01-10 10:08 | Outpatient (CLI) | payer BC, SELFPAY ==
--- OUTSIDE RECORDS SUMMARY | 2024-12-08 08:00 | XMS_ITS | Encounter Summary ---
Author Organization Healthcare Address [address] [place] [address] Care Team Providers Care Car Sales Representative Name Role Phone Irvin Duong MD Primary Care Provider Unavail able Reason for Visit * Reason Comments Eye Exam Encounter Details Date Type Department Care Team (Late st Contact Info) Description 12/08/2024 8:00 AM EDT Clinical Support [facility] [address] [place] [address] Radha Carr MD [address] [address] Eye Exam Social History Tobacco Use Types Packs/Day Years Used Date Smoking Tobacco: Never Passive Smoke Exposure: Never Smokeless Tobacco: Never Alcohol Use Standard Drinks/Week Comments Never 0 (1 standard drink = 0.6 oz pur e alcohol) Comments Unknown Sex and Gender Information Value Date Recorded Sex Assigned at Not on file Legal Sex Female 8:43 PM EDT Gender Identity Not on file Sexual Orientation Not on file documented as of this encounter Miscellaneous Notes * Patient Instructions - Radha Carr MD - 12/08/2024 8:00 AM EDT It is important to maintain as good control of your blood sugars, blood pressure, and cholesterol as possible for the overall health of your eyes. Call or return to clinic with sudden vision changes including worsening blurring, distortions, or significant flashes or floaters. Consider going to the emergency room if you are unable to reach the clinic on the phone. Call [phone] and ask for the medical claims processor personal financial counselor if it is after hours or a weekend or holiday. * Progress Notes - Radha Carr MD - 12/08/2024 8:00 AM EDT Retina Clinic Note CHIEF COMPLAINT Patient presents for Eye Exam HISTORY OF PRESENT ILLNESS: Alana Matthews is a 59 y.o. female who presents to the clinic today for: No results found for: HGBA1C HPI 59 yo f here for follow up. 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 Pt reports some vertigo since june. Denies pain, irritation, flashes, floaters. A1C-15 Last edited by Dago Jennings on 12/08/2024 8:47 AM. REVIEW OF SYSTEMS: ROS Positive for: Eyes Negative for: Constitutional, Gastrointestinal, Neurological, Skin, Genitourinary, Musculoskeletal,HENT, Endocrine, Cardiovascular, Respiratory, Psychiatric, Allergic/Imm, Heme/Lymph Last edited by Dago Jennings on 12/08/2024 8:46 AM. Negative except for ROS Positive for: Eyes Negative for: Constitutional, Gastrointestinal, Neurological, Skin, Genitourinary, Musculoskeletal,HENT, Endocrine, Cardiovascular, Respiratory, Psychiatric, Allergic/Imm, Heme/Lymph Last edited by Dago Jennings on 12/08/2024 8:46 AM. Referring physician: No referring provider defined for this encounter. HISTORICAL INFORMATION: Selected notes from the medical record: CURRENT MEDICATIONS: No current outpatient medications on file. (Ophthalmic Drugs) No current facility-administered medications for this visit. (Ophthalmic Drugs) Current Outpatient Medications (Other) Medication Sig levothyroxine (Synthroid, Levoxyl) 50 MCG tablet Take 1 tablet (50 mcg) by mouth 1 (one) time each day before breakfast. meclizine (Antivert) 25 MG tablet No current facility-administered medications for this visit. (Other) ALLERGIES Allergies Allergen Reactions Penicillins Hives and Swelling PAST MEDICAL HISTORY Past Medical History: Diagnosis Date Diabetes mellitus (CMS/HCC) Disease of thyroid gland Past Surgical History: Procedure Laterality Date CATARACT EXTRACTION Left 2021 Phani Murry MD TUBAL LIGATION 1986 WISDOM TOOTH EXTRACTION 1991 FAMILY HISTORY Family History Problem Relation Name Age of Onset Cataracts Mother Diabetes Mother Stroke Father Hypertension Father Cancer Sister Cancer Brother SOCIAL HISTORY Social History Tobacco Use Smoking status: Never Passive exposure: Never Smokeless tobacco: Never Vaping Use Vaping status: Never Used Substance Use Topics Alcohol use: Never Drug use: Never GENERAL EXAM: General Exam: Neuro: Alert and Oriented x 3, normal mood and affect OPHTHALMIC EXAM: Base Eye Exam Visual Acuity (Snellen - Linear) Right Left Dist sc 20/500 20/500 Dist ph sc 20/80 -1 20/100 -1 Tonometry (Tonopen, 8:56 AM) Right Left Pressure 18 15 Pupils Pupils APD Right PERRL None Left PERRL None Neuro/Psych Oriented x3: Yes Mood/Affect: Normal Dilation Both eyes: 1% Tropicamide, 2.5% Phenylephrine @ 8:55 AM Slit Lamp and Fundus Exam External Exam Right Left External Normal Normal Slit Lamp Exam Right Left Lids/Lashes Normal for age Normal for age Conjunctiva/Sclera Normal Normal Cornea Clear and compact Clear and compact Anterior Chamber Deep and quiet Deep and quiet Iris Normal pupil size and shape Normal pupil size and shape Lens 2+ NS 2+ DIANA Posterior chamber intraocular lens Anterior Vitreous Normal Normal Fundus Exam Right Left Disc No edema; no vascularization; good color (Geovanny 78 d Lens) No edema; no vascularization; good color (Geovanny 78 d Lens) C/D Ratio 0.3 0.3 Macula Exudate temp to fovea - not thickened Exudate with circinate ring - exudate in fovea, edema,grid laser Vessels Perfused; no tortuosity or abnormality Perfused; no tortuosity or abnormality Periphery Attached; mod NPDR Attached; mod NPDR IMAGING AND PROCEDURES OCT, Retina - OU - Both Eyes Right Eye Quality was good. Scan locations included subfoveal. Progression has been stable. Left Eye Quality was good. Scan locations included subfoveal. Progression has been stable. Notes Right eye (OD): no CSME, peripheral exudates marcel sup. with thickening Left eye (OS): moderate thickening with exudates adjacent to fovea OCT, Retina - OU - Both Eyes Right Eye Quality was good. Scan locations included subfoveal. Progression has been stable. Left Eye Quality was good. Scan locations included subfoveal. Progression has been stable. Notes Right eye (OD): no CSME, peripheral exudates marcel sup. with thickening Left eye (OS): moderate thickening with exudates adjacent to fovea VISIT DIAGNOSES 1. 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 Combined forms of age-related cataract of right eye 3. Pseudophakia of left eye ASSESSMENT AND PLAN: 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2 diabetes mellitus (CMS/HCC) - vision today 12/08 not accurate (not wearing contacts) Right eye (OD): no CSME, monitor Left eye (OS): + CSME, but stable and previously refracted to better vision - was initially here for study screening visit but on extended conversation of r/b/a/c of study, ptwants to wait for later phase trial and converted visit to standard visit - per pt, left eye is better seeing eye, she's happy with vision and OCT is stable. Monitor closely, recheck 3-4 months - encourage good BP/BG control - discussed mild risk of worsening retinopathy with Ozempic if restarts, but would defer treatment decisions to primary if needed for BG control ok to start Age related combined form Cataracts OD - approaching visually significant, pt wants to monitor for now - would recommend preop LUIS given noncentral edema and DME left eye (OS) when ready Pseudophakia left eye (OS) - monitor, axis clear Explained the diagnoses, plan, and follow up with the patient and they expressed understanding. Patient expressed understanding of the importance of proper follow up care. Follow up for 3-4 months retina (Rachid vs ). Patient Instructions It is important to maintain as good control of your blood sugars, blood pressure, and cholesterol as possible for the overall health of your eyes. Call or return to clinic with sudden vision changes including worsening blurring, distortions, or significant flashes or floaters. Consider going to the emergency room if you are unable to reach the clinic on the phone. Call [phone] and ask for the medical claims processor personal financial counselor if it is after hours or a weekend or holiday. Electronically signed by: Radha Carr MD 12/08/2024 9:30 AM Tobacco Cessation Initiative: Tobacco Use: Low Risk (12/08/2024) Patient History Smoking Tobacco Use: Never Smokeless Tobacco Use: Never Passive Exposure: Never The patient has been counseled on tobacco cessation: Not Applicable documented in this encounter Plan of Treatment Upcoming Encounters Date Type Department Care Team (Late st Contact Info) Description 03/13/2025 8:00 AM EST Office Visit [facility] [address] [place] [address] Marcell Rashid MD 110 [facility] [address] [place] [address] documented as of this encounter Procedures Procedure Name Priority Date/Time Associated Diagnosis Comments OCT, RETINA - OU - BOTH EYES Routine 12/08/2024 9:10 AM EDT documented in this encounter Results * OCT, Retina - OU - Both Eyes (12/08/2024 9:10 AM EDT) Anatomical Region Laterality Modality Head Optical Coherenc e Tomography Narrative 12/08/2024 9:10 AM EDT Right Eye Quality was good. Scan locations included subfoveal. Progression has been stable. Left Eye Quality was good. Scan locations included subfoveal. Progression has been stable. Notes Right eye (OD): no CSME, peripheral exudates marcel sup. with thickening Left eye (OS): moderate thickening with exudates adjacent to fovea us Radha Carr MD OPHTH TOMOGRAPHY Final Result documented in this encounter Visit Diagnoses Diagnosis 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 2 diabetes mellitus- Primary Combined forms of age-related cataract of right eye Pseudophakia of left eye Lens replaced by other means documented in this encounter Additional Health Concerns Assessment Noted Time A fall risk assessment has been complete d for the patient 12/28/2023 8:29 AM EDT A Body Mass Index follow-up plan has been documented for the patient 12/08/2024 9:31 AM EDT documented as of this encounter Care Teams Car Sales Representative Relationship Specialty Start Date End Date Irvin Duong MD [address] [facility] [address] [place] [address] PCP - General 01/27/22 documented as of this encounter
--- OUTSIDE RECORDS SUMMARY | 2024-12-08 08:50 | XMS_ITS | Encounter Summary ---
Author Organization Healthcare Address [address] [place] [address] Care Team Providers Care Camp Head Counselor Name Role Phone Irvin Duong MD Primary Care Provider Unavail able Encounter Details Date Type Department Care Team (Late st Contact Info) Description 12/08/2024 8:50 AM EDT Ancillary Procedure [facility] [address] [place] [address] Social History Tobacco Use Types [...] Description 03/13/2025 8:00 AM EST Office Visit [facility] [address] [place] [address] Marcell Rashid MD [address] [address] documented as of this encounter [...] documented as of this encounter Care Teams Camp Head Counselor Relationship Specialty Start Date End Date Irvin Duong MD [address] [facility] [address] [place] [address] PCP - General 01/27/22 documented as of this encounter
[2025-01-10 14:14] LABS: Hematocrit 45.1 % (37.0-47.0); Hemoglobin 14.8 g/dL (12.2-16.2); Immature Granulocytes % 0.3 %; Mean Corpuscular HGB Conc 32.8 g/dL (31.8-35.4); Mean Corpuscular Hemoglobin 30.3 pg (27.0-31.2); Mean Corpuscular Volume 92.2 fl (81-99); Nucleated Red Blood Cells % 0 %; Platelet Count 224 K/mm3 (142-424); Red Blood Count 4.89 M/mm3 (4.20-5.40); Red Cell Distribution Width-SD 41.0 fL; White Blood Count 7.1 K/mm3 (4.8-10.8)
[2025-01-10 14:27] LABS: Chloride 100 mmol/L (98-107)
[2025-01-10 14:28] LABS: Albumin Level 4.5 g/dl (3.5-5.0); Potassium 4.8 mmoL/L (3.5-5.1); Sodium 137 mmol/L (136-145)
[2025-01-10 14:30] LABS: Anion Gap 14.8 mEq/L (5-15); Blood Urea Nitrogen 15 mg/dl (7-17); Carbon Dioxide 27 mmol/L (22.0-30.0); Creatinine,Serum 0.70 mg/dl (0.52-1.04); Estimated Glomerular Filt Rate 86 ml/min (>60); GFR (African American) 104 ML/MIN (>60)
[2025-01-10 14:31] LABS: Alanine Aminotransferase 20 U/L (12-78); Albumin/Globulin Ratio 1.7 (1.1-1.8); Alkaline Phosphatase 101 U/L (38-126); Aspartate Amino Transferase 23 U/L (14-36); Bilirubin,Total 1.0 mg/dl (0.2-1.3); Calcium 9.3 mg/dl (8.4-10.2); Cholesterol 281 mg/dl (140-200); Globulin 2.7 g/dL (1.3-3.2); Glucose 337 mg/dl (74-100); HDL Cholesterol 50 mg/dl (40-60); Total Protein,Serum 7.2 g/dl (6.3-8.2); Triglycerides 209 mg/dl (30-150)
[2025-01-10 14:46] LABS: Free T4 (Free Thyroxine) 1.39 ng/dl (0.78-2.19)
[2025-01-10 15:01] LABS: Thyroid Stimulating Hormone 2.00 uIU/mL (0.465-4.68)
[2025-01-10 18:47] LABS: Hemoglobin A1C > 14.0 % (4.0-6.0)
--- OUTSIDE RECORDS SUMMARY | 2025-01-11 10:15 | XMS_ITS | Encounter Summary ---
Author Organization Healthcare Address [address] [place] [address] Care Team Providers Care Sld Educational Aide Name Role Phone Irvin Duong MD Primary [...] Description 03/13/2025 8:00 AM EST Office Visit [facility] [address] [place] [address] Marcell Rashid MD [address] [place] [address] documented as of this encounter Visit Diagnoses Not on filedocumented in this encounter Additional Health Concerns Assessment Noted Time A fall risk assessment has been complete d for the patient 12/28/2023 8:29 AM EDT A Body Mass Index follow-up plan has been documented for the patient 12/08/2024 9:31 AM EDT documented as of this encounter Care Teams Sld Educational Aide Relationship Specialty Start Date End Date Irvin Duong MD [address] [facility] [address] [place] [address] PCP - General 01/27/22 documented as of this encounter
--- OUTSIDE RECORDS SUMMARY | 2025-01-11 10:16 | XMS_ITS | Encounter Summary ---
Author Organization Healthcare Address [address] [place] [address] Care Team Providers Care Chief Technician X Ray Name Role Phone Irvin Duong MD Primary Care Provider Unavail able Reason for Visit * Reason Onset Date Comments HCN - Patient Message 12/05/2024 Encounter Details Date Type Department Care Team (Late st Contact Info) Description 12/05/2024 Telephone [facility] [address] [place] [address] Marcell Rashid MD [address] [address] HCN - Patient Message Social [...] of the initial request. Best contact number: [phone] (home) Optimal time of day to reach [...] optimal time of day to reach caller: [phone] Note: Please do not reply to this [...] Description 03/13/2025 8:00 AM EST Office Visit [facility] [address] [place] [address] Marcell Rashid MD [address] [address] documented as of this encounter Visit Diagnoses Not on filedocumented in this encounter Additional Health Concerns Assessment Noted Time A fall risk assessment has been complete d for the patient 12/28/2023 8:29 AM EDT A Body Mass Index follow-up plan has been documented for the patient 06/01/2024 9:36 AM EST documented as of this encounter Care Teams Chief Technician X Ray Relationship Specialty Start Date End Date Irvin Duong MD [address] [facility] [address] [place] [address] PCP - General 01/27/22 documented as of this encounter
--- OUTSIDE RECORDS SUMMARY | 2025-01-11 10:16 | XMS_ITS | Continuity of Care Document ---
Author Organization [facility] Address [address] [place] [address] Care Team Providers Care Marine Animal Trainer Name Role Phone Irvin Duong MD Primary Care Provider Unavail able Encounters Date Type Department Care Team Description 12/08/2024 8:50 AM EDT Ancillary Procedure [facility] [address] [place] [address] 12/08/2024 Travel 12/08/2024 8:00 AM EDT Clinical Support [facility] [address] [place] [address] Radha Carr MD Eye Exam 12/05/2024 Telephone [facility] [address] [place] [address] Marcell Rashid MD HCN - Patient Message 06/30/2024 Travel 06/30/2024 8:30 AM EDT Clinical Support [facility] [address] [place] [address] Radha Carr MD Research 06/01/2024 Travel 06/01/2024 7:20 AM EST Ancillary Procedure [facility] [address] [place] [address] 06/01/2024 9:00 AM EST Office Visit [facility] [address] [place] [address] Marcell Rashid MD 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 2 diabetes mellitus (CMS/HCC) (Primary Dx) 05/25/2024 Travel 05/17/2024 Telephone [facility] [address] [place] [address] Marcell Rashid MD HCN - Patient Message 03/14/[address] [facility] [address], [address] [place] [address] Rosa Stokes APRN 03/13/2024 2:21 PM EST - 03/13/2024 11:59 PM EST Hospital Encounter [facility] X-Ray [address], [address] [place] [address] Rib pain on left side Discharge Disposition: Home or Self Care 03/13/2024 Travel 03/13/2024 2:20 PM EST Office Visit [facility] [address], [address] [place] [address] Rosa Stokes, BIANCA Rash and nonspecific skin eruption (Primary Dx); Rib pain on left side 12/28/2023 8:30 AM EDT Ancillary Procedure [facility] [address] [place] [address] 12/28/2023 Travel 12/28/2023 8:30 AM EDT Office Visit [facility] [address] [place] [address] Marcell Rashid MD 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 2 diabetes mellitus (CMS/HCC) (Primary Dx) 09/07/2023 Travel 09/07/2023 7:20 AM EDT Ancillary Procedure [facility] [address] [place] [address] 09/07/2023 8:30 AM EDT Office Visit [facility] [address] [place] [address] Marcell Rashid MD 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 2 diabetes mellitus (CMS/HCC) (Primary Dx) 06/08/2023 Travel 06/08/2023 7:10 AM EST Ancillary Procedure [facility] [address] [place] [address] 06/08/2023 8:30 AM EST Office Visit [facility] [address] [place] [address] Marcell Rashid MD 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 2 diabetes mellitus (CMS/HCC) (Primary Dx) 03/02/2023 Travel 03/02/2023 7:20 AM EST Ancillary Procedure [facility] [address] [place] [address] 03/02/2023 8:30 AM EST Office Visit [facility] [address] [place] [address] Marcell Rashid MD 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 2 diabetes mellitus (CMS/HCC) (Primary Dx) 12/29/2022 Travel 12/29/2022 7:30 AM EDT Ancillary Procedure [facility] [address] [place] [address] 12/29/2022 9:30 AM EDT Procedure Visit [facility] [address] [place] [address] Marcell Rashid MD 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 2 diabetes mellitus (CMS/HCC) (Primary Dx) 11/17/2022 Travel 11/17/2022 7:40 AM EDT Ancillary Procedure [facility] [address] [place] [address] 11/17/2022 9:00 AM EDT Procedure Visit [facility] [address] [place] [address] Marcell Rashid MD 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 2 diabetes mellitus (CMS/HCC) (Primary Dx) 09/30/2022 Telephone [facility] [address] [place] [address] Frances Espinoza, OD 09/29/2022 Travel 09/29/2022 7:20 AM EDT Ancillary Procedure [facility] [address] [place] [address] 09/29/2022 9:00 AM EDT Procedure Visit [facility] [address] [place] [address] Marcell Rashid MD 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 2 diabetes mellitus (CMS/HCC) (Primary Dx) 09/04/2022 Telephone [facility] [address] [place] [address] Marcell Rashid MD HCN Clinical Concern/Question 08/11/2022 Travel 08/11/2022 7:30 AM EDT Ancillary Procedure [facility] [address] [place] [address] 08/11/2022 9:00 AM EDT Procedure Visit [facility] [address] [place] [address] Marcell Rashid MD 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 2 diabetes mellitus (CMS/HCC) (Primary Dx) 06/16/2022 Telephone [facility] [address] [place] [address] Marcell Rashid MD HCN Clinical Concern/Question 06/16/2022 Travel 06/16/2022 5:15 AM EST Ancillary Procedure [facility] [address] [place] [address] 06/16/2022 9:00 AM EST Office Visit [facility] [address] [place] [address] Marcell Rashid MD 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 2 diabetes mellitus (CMS/HCC) (Primary Dx) 05/14/2022 Telephone [facility] [address] [place] [address] Benito Fitzgerald MD 05/14/2022 Travel 05/14/2022 7:45 AM EST Ancillary Procedure [facility] [address] [place] [address] 05/14/2022 9:15 AM EST Office Visit [facility] [address] [place] [address] Marcell Rashid MD 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 2 diabetes mellitus (CMS/HCC) (Primary Dx) 03/10/2022 Travel 03/10/2022 7:55 AM EST Ancillary Procedure [facility] [address] [place] [address] 03/10/2022 9:00 AM EST Procedure Visit [facility] [address] [place] [address] Marcell Rashid MD 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 2 diabetes mellitus (CMS/HCC) (Primary Dx) 01/27/2022 Travel 01/27/2022 7:20 AM EDT Ancillary Procedure [facility] [address] [place] [address] 01/27/2022 8:30 AM EDT Office Visit [facility] [address] [place] [address] Marcell Rashid MD Moderate nonproliferative diabetic retinopathy [...] Sister Social History Smoking Status as of 01/11/2025 Tobacco Use Types Packs/Day Years Used Date [...] Description 03/13/2025 8:00 AM EST Office Visit [facility] [address] [place] [address] Marcell Rashid MD [address] [phone] Procedures Procedure Name Priority Date/Time Associated Diagnosis [...] Hold for add-ons 06/30/2024 1:[address] [facility] Comment:Auto resulted. Blood Venous blood specimen / Unknown Venipuncture / Unknown 06/30/2024 8:53 AM EDT 06/30/2024 10:01 AM EDT us Radha Carr MD LAB BLOOD ORDERABLES F inal Result [facility] [address] [place] [address] * (ABNORMAL) Urinalysis with reflex microscopic (Culture NOT Included) (06/30/2024 8:53 AM EDT) Color, Urine Yellow LAB URINALYSIS - AUTOMATED METHOD 06/30/2024 10:[address] [facility] Clarity, Urine Clear LAB URINALYSIS - AUTOMATED METHOD 06/30/2024 10:[address] [facility] Spec Banco, Urine >1.030(H) 1.005 - 1.030 LAB URINALYSIS - AUTOMATED METHOD 06/30/2024 10:[address] [facility] pH, Urine 5.5 5.0 - 8.0 LAB URINALYSIS - AUTOMATED METHOD 06/30/2024 10:[address] [facility] Protein, Urine Negative Negative mg/dL LAB URINALYSIS - AUTOMATED METHOD 06/30/2024 10:[address] [facility] Glucose, Urine 100(A) Negative mg/dL LAB URINALYSIS - AUTOMATED METHOD 06/30/2024 10:[address] [facility] Ketones, Urine Negative Negative mg/dL LAB URINALYSIS - AUTOMATED METHOD 06/30/2024 10:[address] [facility] Blood, Urine Negative Negative LAB URINALYSIS - AUTOMATED METHOD 06/30/2024 10:[address] [facility] Bilirubin, Urine Negative Negative LAB URINALYSIS - AUTOMATED METHOD 06/30/2024 10:[address] [facility] Urobilinogen, Urine 0.2 0.2 to 1.0 mg/dL LAB URINALYSIS - AUTOMATED METHOD 06/30/2024 10:[address] [facility] Leukocytes, Urine Negative Negative LAB URINALYSIS - AUTOMATED METHOD 06/30/2024 10:[address] [facility] Nitrite, Urine Negative Negative LAB URINALYSIS - AUTOMATED METHOD 06/30/2024 10:[address] [facility] Urine Urine specimen obtained by clean catch procedure / Unknown Non-blood Collection / Unknown 06/30/2024 8:53 AM EDT 06/30/2024 9:44 AM EDT us Radha Carr MD LAB URINE ORDERABLES F inal Result [facility] [address] [place] [address] * CBC w/ Diff (06/30/2024 8:53 AM EDT) WBC Count 7.16 3.70 - 10.30 10*3/uL LAB HEMATOLOGY METHOD 06/30/2024 9:[address] [facility] RBC Count 4.40 3.90 - 5.20 10*6/uL LAB HEMATOLOGY METHOD 06/30/2024 9:[address] [facility] HGB 13.2 11.2 - 15.7 g/dL LAB HEMATOLOGY METHOD 06/30/2024 9:[address] [facility] HCT 40.0 34.0 - 45.0 % LAB HEMATOLOGY METHOD 06/30/2024 9:[address] [facility] Platelet Count 197 155 - 369 10*3/uL LAB HEMATOLOGY METHOD 06/30/2024 9:[address] [facility] MCV 91 79 - 98 fL LAB HEMATOLOGY METHOD 06/30/2024 9:[address] [facility] MCH 30.0 26.0 - 32.0 pg LAB HEMATOLOGY METHOD 06/30/2024 9:[address] [facility] MCHC 33.0 30.7 - 35.5 g/dL LAB HEMATOLOGY METHOD 06/30/2024 9:[address] [facility] RDW 12.2 11.5 - 14.5 % LAB HEMATOLOGY METHOD 06/30/2024 9:[address] [facility] MPV 9.7 8.8 - 12.5 fL LAB HEMATOLOGY METHOD 06/30/2024 9:[address] [facility] nRBC 0.0 <=0.0 per 100 WBCs LAB HEMATOLOGY METHOD 06/30/2024 9:[address] [facility] Differential Type Automated LAB HEMATOLOGY METHOD 06/30/2024 9:[address] [facility] Neutrophils % 51 % LAB HEMATOLOGY METHOD 06/30/2024 9:[address] [facility] Lymphocytes % 36 % LAB HEMATOLOGY METHOD 06/30/2024 9:[address] [facility] Monocytes % 7 % LAB HEMATOLOGY METHOD 06/30/2024 9:[address] [facility] Eosinophils % 4 % LAB HEMATOLOGY METHOD 06/30/2024 9:[address] [facility] Basophils % 1 % LAB HEMATOLOGY METHOD 06/30/2024 9:[address] [facility] Immature Granulocytes % 1 % LAB HEMATOLOGY METHOD 06/30/2024 9:[address] [facility] Neutrophils Absolute 3.71 1.60 - 6.10 10*3/uL LAB HEMATOLOGY METHOD 06/30/2024 9:[address] [facility] Lymphocytes Absolute 2.59 1.20 - 3.90 10*3/uL LAB HEMATOLOGY METHOD 06/30/2024 9:[address] [facility] Monocytes Absolute 0.53 0.30 - 0.90 10*3/uL LAB HEMATOLOGY METHOD 06/30/2024 9:[address] [facility] Eosinophils Absolute 0.25 0.00 - 0.50 10*3/uL LAB HEMATOLOGY METHOD 06/30/2024 9:[address] [facility] Basophils Absolute 0.04 0.00 - 0.10 10*3/uL LAB HEMATOLOGY METHOD 06/30/2024 9:[address] [facility] Immature Granulocytes Absolute 0.04 0.00 - 0.06 10*3/uL LAB HEMATOLOGY METHOD 06/30/2024 9:[address] [facility] Blood Venous blood specimen / Unknown Venipuncture / Unknown 06/30/2024 8:53 AM EDT 06/30/2024 9:49 [facility]/30/[facility]24 9:56 AM EDT Therapeutic decision making should be based on absolute values, rather than percentages. us Radha Carr MD LAB BLOOD ORDERABLES F inal Result [facility] [address] [place] [address] * (ABNORMAL) Lipid panel (06/30/2024 8:53 AM EDT) Cholesterol, Plasma 249(H) <200 mg/dL 06/30/2024 10:[address] [facility] Comment: Cholesterol Reference Range (age >17 years): Desirable <200 mg/dL Borderline 200 to 239 mg/dL Undesirable >239 mg/dL HDL 46(L) >=50 mg/dL 06/30/2024 10:[address] [facility] Comment: HDL Cholesterol Reference Ranges (age >17 years): Female, acceptable > or = 50 mg/dL Male, acceptable > or = 40 mg/dL Triglycerides, Plasma 148 <150 mg/dL 06/30/2024 10:[address] [facility] Comment: Triglyceride Reference Range (age >17 years): Desirable: <150 mg/dL Borderline high: 150 to 199 mg/dL High: 200 to 499 mg/dL Very high: >499 mg/dL Increased risk of pancreatitis: >1000 mg/dL Cholesterol/HDL Ratio 5 06/30/2024 10:[address] [facility] LDL, Calculated 176(H) <100 mg/dL 10:[address] [facility] Comment: LDL Cholesterol Reference Range (age [...] 12 hours? No 06/30/2024 10:[address] [facility] Blood Venous blood specimen / Unknown Venipuncture / Unknown 06/30/2024 8:53 AM EDT 06/30/2024 9:54 AM EDT us Radha Carr MD LAB BLOOD ORDERABLES F inal Result [facility] [address] [place] [address] * (ABNORMAL) Comprehensive metabolic panel (06/30/2024 8:53 AM EDT) Glucose, Plasma 346(H) 74 - 99 mg/dL 06/30/2024 10:[address] [facility] BUN, Plasma 16 7 - 21 mg/dL 06/30/2024 10:[address] [facility] Creatinine, Plasma 0.68 0.60 - 1.10 mg/dL 06/30/2024 10:[address] [facility] BUN/Creatinine Ratio 24 06/30/2024 10:[address] [facility] Sodium, Plasma 137 136 - 145 mmol/L 06/30/2024 10:[address] [facility] Potassium, Plasma 4.0 3.6 - 4.9 mmol/L 06/30/2024 10:[address] [facility] Chloride, Plasma 101 97 - 107 mmol/L 06/30/2024 10:[address] [facility] CO2, Plasma 24 22 - 29 mmol/L 06/30/2024 10:[address] [facility] Anion Gap 12 6 - 16 mmol/L 06/30/2024 10:[address] [facility] Total Calcium, Plasma 9.0 8.9 - 10.2 mg/dL 06/30/2024 10:[address] [facility] Total Protein 7.0 6.3 - 7.9 g/dL 06/30/2024 10:[address] [facility] Albumin, Plasma 4.1 3.5 - 5.2 g/dL 06/30/2024 10:[address] [facility] AST, Plasma 16 10 - 35 U/L 06/30/2024 10:[address] [facility] ALT, Plasma 28 10 - 35 U/L 06/30/2024 10:[address] [facility] Alkaline Phosphatase, Plasma 107 46 - 142 U/L 06/30/2024 10:[address] [facility] Total Bilirubin, Plasma 0.3 0.2 - 1.1 mg/dL 06/30/2024 10:[address] [facility] eGFRcr 101.7 mL/min/1.7 3m*2 06/30/2024 10:[address] [facility] Comment:Reported eGFRcr in m L/min/1.73m2 is based the CKD-EPI 2020 equation that does not use a race coefficient. Blood Venous blood specimen / Unknown Venipuncture / Unknown 06/30/2024 8:53 AM EDT 06/30/2024 9:54 AM EDT us Radha Carr MD LAB BLOOD ORDERABLES F inal Result [facility] [address] [place] [address] * OCT, Retina - OU - Both [...] Flores on 03/13/2024 3:01 PM Rosa Stokes LEDGER POSTER IMG XR PROCEDURES Final Res ult * Varicella zoster antibody, IgM (03/13/2024 2:28 PM EST) Varicella-Zost er Virus Antibody, IgM 0.02 <=0.90 ISR 03/15/2024 11:32 PM EST [employer] [facility]) Blood Venous blood specimen / Unknown Venipuncture / Unknown 03/13/2024 2:28 PM EST 03/13/2024 9:27 PM EST Narrative [facility] [employer] [facility]) - 03/15/2024 11:32 PM EST INTERPRETIVE [...] 12 months post-infection or immunization. Performed By: [place] [address] Buffing Line Set Up Worker: Mahin Bennett MD, PhD CLIA Number: [id number] Rosa Aggie Kike VALENZUELA LAB BLOOD ORDERABLES Final Result [facility] [address] [place] [address] * OCT, Retina - OU - Both [...] included subfoveal. Progression has been stable. Marcell Rsahid MD OPHTH TOMOGRAPHY Final Result * OCT, [...] edema unchanged. Retinal thickness stable, ERM Result [facility] us Marcell Rashid MD OPHTH TOMOGRAPHY Final [...] 2 MG/0.05ML Route: Intravitreal, Site: Left Eye [facility]: [id number], Lot: [id number], Expiration date: 07/20/2023 Post-op Post injection exam found visual acuity of at least counting fingers. The patient tolerated the procedure well. There were no complications. The patient received written and verbal post procedure care education. Post injection medications were not given. Result Jasen Rashid MD [facility] PROCEDURES Final Result * OCT, Retina - OU - Both Eyes (09/29/2022 10:00 AM EDT) Anatomical Region Laterality Modality [employer] [facility] Tomography Narrative 09/29/2022 10:00 AM EDT Right Eye Quality was good. Progression has been stable. Left Eye Quality was good. Progression has been stable. Notes OD: normal foveal contour, non central exudate OS: stable IRF/exudate Result [facility] Marcell Rashid MD [facility] TOMOGRAPHY Final Result * OCT, Retina - OU - Both Eyes (08/11/2022 10:59 AM EDT) Anatomical Region Laterality Modality [employer]he[employer] Tomography Narrative 08/11/2022 10:59 AM EDT Right Eye Quality was good. Progression has been stable. Left Eye Quality was good. Progression has worsened. Notes OD: normal foveal contour, non central exudate OS: mildly worsened IRF/exudate Result [facility] Marcell Rashid MD [facility] TOMOGRAPHY Final Result * Intravitreal Injection, Pharmacologic [...] 2 MG/0.05ML Route: Intravitreal, Site: Left Eye [facility]: [id number], Lot: [id number], Expiration date: 07/20/2023 Post-op Post injection exam found visual acuity of at least counting fingers. The patient tolerated the procedure well. There were no complications. The patient received written and verbal post procedure care education. Post injection medications were not given. Result [facility] Marcell Rashid MD [facility] PROCEDURES Final Result * Intravitreal Injection, [...] MG/0.05ML Route: Intravitreal, Site: Left Eye [place]: [id number], Lot: [id number], Expiration date: 07/24/2022, Waste: 3.95 mL Post-op [...] MG/0.05ML Route: Intravitreal, Site: Left Eye ND: [id number], Lot: [id number], Expiration date: 06/26/2022, Waste: 3.95 mL Post-op [...] type 2 diabetes mellitus 01/27/2022 Diabetic retinopathy Type II or unspecified type diabetes mellitus [...] replaced by other means 12/08/2024 Care Teams Marine Animal Trainer Relationship Specialty Start Date End Date Irvin Duong MD [address] [place] [address] PCP - General 01/27/22
== END 2025-01-10 23:59 ==
LOC: LAB.DROPOF 01-11 10:09
PROVIDERS: Nurse Practitioner Obstetrics & Gynecology; PCP Internal Medicine; Visit Provider Internal Medicine
DX: Z00.00 Encounter for general adult medical examination without abnormal findings (principal); Z13.29 Encounter for screening for other suspected endocrine disorder; E03.9 Hypothyroidism, unspecified
CPT/HCPCS: 80053; 80061; 83036; 84439; 84443; 85025